=== PATIENT | female | born 1990 | race Caucasian/White ===

== ENCOUNTER 2018-03-16 20:25 | Emergency (ER) | payer MEDICAID ==
[~2018-03-16] VITALS: Ht 170.2 cm; Wt 202.0 kg
[~2018-03-16 20:25] MED LIST: ACET-812 PO
[2018-03-16 20:45] VITALS: BP 147/110
[2018-03-16] MEDS ORDERED: cetirizine 10mg tablet PO SCH (23:35)
[2018-03-16] MEDS ORDERED: pseudoephedrine 30mg tablet PO ONE (23:35)
== END 2018-03-17 00:16 | disposition home or self-care (01) ==
LOC: ER 20:25
DX: M79.674 Pain in right toe(s) (principal); H83.8X2 Other specified diseases of left inner ear; W01.198A Fall on same level from slipping, tripping and stumbling with subsequent striking against other object, initial encounter; Y93.01 Activity, walking, marching and hiking; Y92.098 Other place in other non-institutional residence as the place of occurrence of the external cause; Y99.9 Unspecified external cause status
CPT/HCPCS: 73660; 99283